=== PATIENT | male | born 1960 | race Two or more races ===

== ENCOUNTER 2021-02-06 12:05 | Emergency (ER) | payer SELFPAY ==
[~2021-02-06] VITALS: Ht 182.9 cm; Wt 167.8 kg
[2021-02-06] MEDS ORDERED: HYDROcodone-ACET 10/325MG TAB PO ONE (12:45)
[2021-02-06 13:56] LABS: Basophils # (auto) 0 10 ^3/uL (0-0.2); Basophils % (auto) 0.1 % (0.0-2.0); Eosinophils # (auto) 0 10 ^3/uL (0-0.8); Eosinophils % (auto) 0.4 % (0.0-7.0); Hematocrit 43.3 % (41.0-53.0); Hemoglobin 14.7 g/dL (13.5-17.5); Lymphocytes % (auto) 8.1 % (10.0-50.0); Mean Corpuscular Hemoglobin 30.5 pg (28.0-32.0); Mean Corpuscular Volume 89.7 fL (80.0-100.0); Monocytes # (auto) 1.1 10 ^3/uL (0-1.3); Neutrophils # (auto) 10.2 10 ^3/uL (1.6-8.6); Neutrophils % (auto) 82.4 % (37.0-80.0); Red Blood Cells 4.83 10^6/uL (4.5-5.90); Red Cell Distribution Width 18.1 % (11.8-14.3); White Blood Cell 12.4 10^3/uL (4.4-10.8)
[2021-02-06 14:12] LABS: Albumin 3.2 g/dL (3.4-5.0); Calcium 9.9 mg/dL (8.5-10.1)
[2021-02-06 14:20] LABS: BUN/Creatinine Ratio 15.6; Bilirubin, Total 0.8 mg/dL (0.2-1.0); Total Protein 7.9 g/dL (6.4-8.2); Uric Acid 17.1 mg/dL (3.5-7.2)
[2021-02-06 14:40] LABS: Potassium 2.9 mmol/L (3.5-5.1)
[2021-02-06] MEDS ORDERED: COLCHICINE 0.6 MG CAP PO ONE (15:00)
[2021-02-06] MEDS ORDERED: INDOMETHACIN 25 MG CAP PO ONE (15:00)
[2021-02-06] MEDS ORDERED: POTASSIUM CHL 20 Meq TABLET PO ONE (15:00)
[2021-02-06 15:37] VITALS: BP 129/85
== END 2021-02-06 15:44 | disposition home or self-care (01) ==
LOC: ER 12:05
DX: M10.9 Gout, unspecified (principal); M25.571 Pain in right ankle and joints of right foot; E87.6 Hypokalemia; I48.91 Unspecified atrial fibrillation; I50.9 Heart failure, unspecified; E11.9 Type 2 diabetes mellitus without complications; Z90.89 Acquired absence of other organs; Z87.891 Personal history of nicotine dependence
CPT/HCPCS: 36415; 80053; 84550; 85025